=== PATIENT | male | born 1990 | race Two or more races ===

== ENCOUNTER 2016-08-18 08:38 | Emergency (ER) | payer SELFPAY ==
[2016-08-18] MEDS ORDERED: DEXAMETHASONE SOD PHOS INJ 10 MG/1 ML VIAL IM ONE (10:11)
--- NOTE | 2016-08-18 10:12 | ER Document Report ---
ED Allergic Reaction - General Mode of Arrival: Ambulatory Information source: Patient TRAVEL OUTSIDE OF THE [place] 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 Patient states that he has been using the same painting products and does not believe it is from the paint. Patient reports that he noticed the pruritic rash 20 minutes after he started painting. Patient denies being bit by anything. Patient reports lip, facial, and bilateral arm swelling, including bilateral arm, neck, and palm pruritic rash. Patient denies shortness of breath, difficulty swallowing, abdominal pain, or nausea. (EVELYN SANDOVAL) - Related Data Allergies/Adverse Reactions: No Known Allergies Allergy (Verified 08/18/16 08:42) Past Medical History - General Information source: Patient - Social History Smoking Status: Never Smoker Chew tobacco use (# tins/day): No Frequency of alcohol use: Occasional Drug Abuse: Marijuana Family History: Reviewed & Not Pertinent Patient has suicidal ideation: No Patient has homicidal ideation: No Renal/ Medical History: Denies: Hx Peritoneal Dialysis Past Surgical History: Reports: Hx Appendectomy - Immunizations Hx Diphtheria, Pertussis, Tetanus Vaccination: Yes Review of Systems - Review of Systems Constitutional: No symptoms reported EENT: See HPI, Mouth swelling, Other - Facial and lip swelling. denies: Difficulty swallowing Cardiovascular: No symptoms reported Respiratory: No symptoms reported. denies: Short of breath Gastrointestinal: No symptoms reported. denies: Abdominal pain, Nausea Genitourinary: No symptoms reported Male Genitourinary: No symptoms reported Musculoskeletal: See HPI, Other - bilateral arm swelling Skin: See HPI, Rash - pruritic rash to the bilateral arms, palms, and neck Hematologic/Lymphatic: No symptoms reported Neurological/Psychological: No symptoms reported -: Yes All other systems reviewed and negative Physical Exam - General General appearance: Alert In distress: None - HEENT Head: Normocephalic, Atraumatic, Other - No trismus Eyes: Normal Extraocular movements intact: Yes Pupils: PERRL Mouth/Lips: Normal, Other - No tongue, lip, or uvular swelling. No drooling. Neck: Normal - Respiratory Respiratory status: No respiratory distress Breath sounds: Normal. No: Stridor - Cardiovascular Rhythm: Regular Heart sounds: Normal auscultation - Abdominal Inspection: Normal - Back Back: Normal - Extremities General upper extremity: Normal inspection, Normal ROM General lower extremity: Normal inspection, Normal ROM - Neurological Neuro grossly intact: Yes Cognition: Normal Orientation: AAOx4 [place] Coma Scale Eye Opening: Spontaneous [place] Coma Scale Verbal: Oriented [place] Coma Scale Motor: Obeys Commands [place] Coma Scale Total: 15 Speech: Normal - Psychological Associated symptoms: Normal affect, Normal mood - Skin Skin Temperature: Warm Skin Moisture: Dry Skin irregularity: Rash - Non-specific erythematous rash to the bilateral anticubs, forearms, and forehead. Location of irregularity: Face - forehead, Extremities - bilateral anticubes and forearms Character of irregularity: Erythematous Discharge - Discharge Clinical Impression: Acute allergic reaction Condition: Stable Disposition: HOME, SELF-CARE Additional Instructions: Allergic Contact Dermatitis You have a local allergic reaction, called contact dermatitis. This an allergy to something in contact with your skin. Poison ignacia, jewelry, soaps, perfumes, and chemicals are common causes. Typically, an itchy rash develops a few days after the exposure. If the reaction is severe, blisters may develop. Two to three weeks may be required for healing. Generally, treatment consists of: (1) a thorough washing with soap to remove the offending substance, (2) application of a cortisone cream, and (3) antihistamines for itching. If the reaction is particularly severe, further measures may be required. These can include soaking in epsom salts or Kristin's solution, and oral cortisone medications. Call the doctor if the rash worsens despite treatment, or if signs of infection occur such as spreading redness, red streaks, swollen glands, swelling , or fever. Prescriptions: Hydroxyzine HCl [Atarax 10 mg Tablet] 10 mg PO TID #20 tablet Prednisone [Deltasone 20 mg Tablet] 3 tab PO DAILY 5 Days Referrals: [facility] [Provider Group] (Call for an appointment to be seen in follow-up in 1-2 days return to the emergency department sooner for increasing worsening or new symptoms) Charlette[facility] Attestation: 08/18/16 10:15 I personally performed the services described in the documentation reviewed the documentation recorded by my scribe in my presence and it accurately and completely records my words and actions (ERICH JACOBSEN) Scribe Documentation - Scribe Written by Arun:: Arun Maciel, 08/18/2016 1105 acting as scribe for :: Suraj
[2016-08-18 10:49] VITALS: BP 127/70
== END 2016-08-18 10:35 | disposition home or self-care (01) ==
LOC: ER 08:38
DX: T78.40XA Allergy, unspecified, initial encounter (principal); R21 Rash and other nonspecific skin eruption; L29.9 Pruritus, unspecified; R22.0 Localized swelling, mass and lump, head; M79.89 Other specified soft tissue disorders; X58.XXXA Exposure to other specified factors, initial encounter
CPT/HCPCS: 99282; 96372; J1100